=== PATIENT | female | born 1965 | race Caucasian/White ===

== ENCOUNTER 2017-12-09 06:14 | Day surgery (SDC) | payer OTHER ==
[~2017-12-09 06:14] MED LIST: COZAAR50 MG PO; HYDROCHLOROTH12.5 M1 PO; LEVO-T150 MCG PO; TENORMIN50 M1 PO
== END 2017-12-09 11:50 | disposition home or self-care (01) ==
LOC: CIR.AMB 06:14
DX: N65.1 Disproportion of reconstructed breast (principal); Z90.11 Acquired absence of right breast and nipple

== ENCOUNTER 2018-06-09 10:08 | Day surgery (SDC) | payer OTHER ==
[~2018-06-09 10:08] MED LIST changes: +ZOCOR20 MG PO
== END 2018-06-09 15:20 | disposition home or self-care (01) ==
LOC: CIR.AMB 10:08
DX: C50.911 Malignant neoplasm of unspecified site of right female breast (principal)